=== PATIENT | male | born 1955 | race Caucasian/White ===

== ENCOUNTER 2018-06-12 12:22 | Emergency (ER) | payer BC ==
[~2018-06-12] VITALS: Ht 188 cm; Wt 74.0 kg
[2018-06-12] MEDS ORDERED: diltiazem 5mg/ml 5ml inj. IV ONE ×2 (12:40→13:40)
[2018-06-12 12:47] LABS: BASOPHILS # (AUTO) 0.1 X10'3 (0-0.2); BASOPHILS % (AUTO) 1.5 % (0-1); EOSINOPHILS # (AUTO) 0.1 X10'3 (0-0.9); EOSINOPHILS % (AUTO) 0.6 % (0-6); HEMATOCRIT 46.4 % (42.0-52.0); HEMOGLOBIN 15.6 g/dl (14.0-17.9); LYMPHOCYTES # (AUTO) 1.8 X10'3 (1.1-4.8); LYMPHOCYTES % (AUTO) 19.8 % (21-51); MEAN CORPUSCULAR HEMOGLOBIN 35.2 PG (27.0-31.0); MEAN CORPUSCULAR HGB CONC 33.7 % (33.0-36.5); MEAN CORPUSCULAR VOLUME 104.6 FL (78-98); MEAN PLATELET VOLUME 9.5 FL (7.4-10.4); MONOCYTES # (AUTO) 0.8 X10'3 (0-0.9); NEUTROPHILS # (AUTO) 6.4 X10'3 (1.8-7.7); NEUTROPHILS % (AUTO) 69.1 % (42-75); PLATELET COUNT 174 X10'3 (140-440); RED BLOOD COUNT 4.44 X10'6 (4.70-6.10); RED CELL DISTRIBUTION WIDTH 13.6 % (11.5-14.5); WHITE BLOOD COUNT 9.3 X10'3 (4.5-11.0)
[2018-06-12 13:09] LABS: ALANINE AMINOTRANSFERASE 169 U/L (12-78); ALBUMIN 3.9 G/DL (3.4-5.0); ALBUMIN/GLOBULIN RATIO 1.2 (1.1-1.5); ALKALINE PHOSPHATASE 78 IU/L (46-116); ANION GAP 13 (8-16); ASPARTATE AMINO TRANSFERASE 140 U/L (10-37); BILIRUBIN,TOTAL 1.6 MG/DL (0.1-1.0); BLOOD UREA NITROGEN 27 MG/DL (7-18); BUN/CREATININE RATIO 17.8 (5.4-32.0); CALCIUM 9.1 MG/DL (8.5-10.1); CHLORIDE 102 MMOL/L (99-107); CREATININE 1.52 MG/DL (0.60-1.10); GLUCOSE 136 MG/DL (70-104); POTASSIUM 4.4 MMOL/L (3.5-5.1); SODIUM 139 MMOL/L (135-145); TOTAL CARBON DIOXIDE 24.1 MMOL/L (24-32); TOTAL PROTEIN 7.1 G/DL (6.4-8.2); eGFR 47 ML/MIN
[2018-06-12 13:10] LABS: INR 1.3 INR; PARTIAL THROMBOPLASTIN TIME 25 SECONDS (22-32); PROTHROMBIN TIME 13.3 SECONDS (9.0-12.0)
[2018-06-12] MEDS ORDERED: enoxaparin 100mg/ml syringe SUBCUT ONE (13:35)
[2018-06-12 14:11] LABS: PHOSPHORUS 4.2 MG/DL (2.3-4.5)
[2018-06-12] MEDS ORDERED: METO25TA6 PO (14:22)
[2018-06-12] MEDS ORDERED: AZIT250T83 PO (14:27)
[2018-06-12] MEDS ORDERED: diltiazem 30mg tablet PO ONE (14:45)
[2018-06-12 15:20] VITALS: BP 147/81
[2018-06-13] MEDS ORDERED: APIX5TAB3 PO (01:38)
[2018-06-13] MEDS ORDERED: iohexol 350MG/ML 100ml bottle IV ONE (02:32)
[2018-06-13] MEDS ORDERED: ATOR20TA66 PO (04:48)
[2018-06-16] MEDS ORDERED: LISI2.5T2 PO (12:58)
[2018-06-16] MEDS ORDERED: FURO-150 PO ×2 (12:58→12:59)
[2018-06-16] MEDS ORDERED: APIX5TAB3 PO (12:58)
[2018-06-16] MEDS ORDERED: CARV3.12 PO ×2 (12:58→12:59)
== END 2018-06-12 15:23 | disposition home or self-care (01) ==
LOC: ER 12:23
DX: I48.91 Unspecified atrial fibrillation (principal); R07.9 Chest pain, unspecified; I10 Essential (primary) hypertension
CPT/HCPCS: 36415; 71045; 80053; 83735; 84100; 84484; 85025; 85610; 85730; 93005; 96372; 96374; 96376; 99284; J1650; J3490; Q9967

== ENCOUNTER 2022-07-29 11:53 | Emergency (ER) | payer MEDICARE, OTHER ==
[~2022-07-29] VITALS: Ht 193 cm; Wt 93.0 kg
[~2022-07-29 11:53] MED LIST: APIX5TAB3 PO; ATOR20TA66 PO; CARV3.12 PO; FURO-150 PO; LISI2.5T14 PO
[2022-07-29 12:59] LABS: BASOPHILS % (AUTO) 0.5 % (0-1); EOSINOPHILS # (AUTO) 0.1 X10'3 (0-0.9); EOSINOPHILS % (AUTO) 0.9 % (0-6); HEMATOCRIT 44.2 % (42.0-52.0); HEMOGLOBIN 14.9 g/dl (14.0-17.9); LYMPHOCYTES % (AUTO) 23.3 % (21-51); MEAN CORPUSCULAR HEMOGLOBIN 33.2 PG (27.0-31.0); MEAN CORPUSCULAR HGB CONC 33.8 g/dL (33.0-36.5); MEAN CORPUSCULAR VOLUME 98.2 FL (78-98); MEAN PLATELET VOLUME 8.6 FL (7.4-10.4); MONOCYTES # (AUTO) 0.6 X10'3 (0-0.9); MONOCYTES % (AUTO) 7.5 % (2-12); NEUTROPHILS # (AUTO) 5.8 X10'3 (1.8-7.7); NEUTROPHILS % (AUTO) 67.8 % (42-75); PLATELET COUNT 199 X10'3 (140-440); RED CELL DISTRIBUTION WIDTH 12.7 % (11.5-14.5); WHITE BLOOD COUNT 8.6 X10'3 (4.5-11.0)
[2022-07-29 13:00] LABS: APTT 30 SECONDS (22-32)
[2022-07-29 13:03] LABS: ALANINE AMINOTRANSFERASE 28 U/L (12-78); ALBUMIN 4.1 G/DL (3.4-5.0); ALBUMIN/GLOBULIN RATIO 1.2 (1.1-1.5); ALKALINE PHOSPHATASE 77 IU/L (46-116); ANION GAP 8 (8-16); ASPARTATE AMINO TRANSFERASE 32 U/L (10-37); BILIRUBIN,TOTAL 1.7 MG/DL (0.1-1.0); BLOOD UREA NITROGEN 17 MG/DL (7-18); BUN/CREATININE RATIO 16.3 (5.4-32.0); CALCIUM 9.4 MG/DL (8.5-10.1); CHLORIDE 103 MMOL/L (99-107); CREATININE 1.04 MG/DL (0.60-1.10); GLUCOSE 119 MG/DL (70-104); POTASSIUM 4.4 MMOL/L (3.5-5.1); SODIUM 137 MMOL/L (135-145); TOTAL CARBON DIOXIDE 25.9 MMOL/L (24-32); TOTAL PROTEIN 7.4 G/DL (6.4-8.2); eGFR 71 ML/MIN
--- NOTE | 2022-07-29 13:05 | NUR ---
neuro assessment completed for head injury, not suspition of stroke.
[2022-07-29] MEDS ORDERED: KCentra-PCC 500 unit/20mL vial 100 ML IV ONE (14:20)
--- NOTE | 2022-07-29 14:26 | NUR ---
gave phone report to Chato RN at [facility] ED for nurse to nurse report, pt being transfered for skull fx
[2022-07-29] MEDS ORDERED: KCENTRA PCC 500 UNIT/20 ML IV ONE (14:45)
[2022-07-29] MEDS ORDERED: acetaminophen 325mg tablet PO ONE (15:25)
[2022-07-29 15:50] VITALS: BP 124/83
== END 2022-07-29 17:42 ==
LOC: ER 11:54
DX: S02.91XA Unspecified fracture of skull, initial encounter for closed fracture (principal); I62.9 Nontraumatic intracranial hemorrhage, unspecified; I48.91 Unspecified atrial fibrillation; E78.00 Pure hypercholesterolemia, unspecified; I10 Essential (primary) hypertension; F12.90 Cannabis use, unspecified, uncomplicated; Z72.89 Other problems related to lifestyle; Z88.1 Allergy status to other antibiotic agents; Z79.899 Other long term (current) drug therapy; X58.XXXA Exposure to other specified factors, initial encounter; Y93.89 Activity, other specified; Y92.89 Other specified places as the place of occurrence of the external cause; Y99.8 Other external cause status
CPT/HCPCS: 36415; 70450; 72125; 80053; 85025; 85610; 85730; 86885; 86900; 86901; 93005; 96365; 96366; 99285; J7168

== ENCOUNTER 2025-02-06 15:48 | Emergency (ER) | payer MEDICARE, OTHER ==
[~2025-02-06] VITALS: Ht 190.5 cm; Wt 90.1 kg
[2025-02-06 16:11] VITALS: TEMP 98.9
[2025-02-06 16:23] LABS: MEAN PLATELET VOLUME 8.1 FL (7.4-10.4); RED CELL DISTRIBUTION WIDTH 13.0 % (11.5-14.5)
--- NOTE | 2025-02-06 16:36 | RADIOLOGY REPORT ---
CHEST RADIOGRAPH Indication: CP Technique: Single frontal view of the chest was obtained COMPARISON: None FINDINGS: Lines and Tubes: None Lungs: Clear Pleura: No effusion. No pneumothorax. Cardiomediastinal contours: Unremarkable Bones: Unremarkable IMPRESSION: 1. No acute disease.
[2025-02-06 16:40] LABS: CREATININE 1.20 MG/DL (0.60-1.10); PRO BRAIN NATRIURETIC PEPTIDE 2847 PG/ML (0-125); TOTAL CARBON DIOXIDE 24.4 MMOL/L (24-32); eCRCL 68 ML/MIN; eGFR 60 ML/MIN
--- NOTE | 2025-02-06 16:55 | ELECTROCARDIOGRAPH REPORT ---
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
[2025-02-06] MEDS: diltiazem 5mg/ml 5ml inj. IV ONE ×2 (18:52→19:40)
[2025-02-06] MEDS: normal saline 1000ml 1,000 ML IV ONE ×2 (18:53→21:36)
--- NOTE | 2025-02-06 19:26 | Physician Documentation ---
History of Present Illness ~ Chief Complaint: Irregular Heartbeat Stated Complaint: CP/SOB Time Seen by MD: 18:46 Mode of Arrival: POV, Ambulatory HPI Patient presents to the emergency room for evaluation of palpitations for which she states feels like atrial fibrillation. Patient does take Eliquis in his emt intermediate is Dr. Cui. He states he saw both his emt intermediate and primary care in the past two months and at that point was told that everything looks good. He had an ablation two years ago and since that time has been in sinus rhythm. Last night he had just finished going out to dinner and having one drink of alcohol came home and felt himself click into atrial fibrillation. No syncope although he states that today while bending over and then standing up he did get lightheaded. Denies chest pain. Medication Reconciliation Allergies: Coded Allergies: cephalexin (Verified Allergy, Unknown, 02/06/25) Scheduled Apixaban (Eliquis), 5 MG PO BID Atorvastatin Calcium (Atorvastatin Calcium), 1 TAB PO DAILY, (Reported) Carvedilol (Coreg), 1 TAB PO Q12H Furosemide (Lasix), 2 TAB PO Q12H Lisinopril (Lisinopril), 2.5 MG PO HS Past Medical History Past Medical History: High Cholesterol, Hypertension Past Surgical History: noncontributory Alcohol Use: Occasionally Drug Use: marijuana Review of Systems ROS All review of systems negative except as per HPI Physical Exam Vital Signs: Temperature: 98.9, Source: Temporal, Heart Rate: 102, Respiratory Rate: 15, BP: 114/75, Pulse Oximetry: 98, Weight: 90.100 Oxygen Flow Rate: 0 Physical Exam General: Patient is awake, alert, oriented x4 in no acute distress and well appearing.~ Head: Normocephalic and atraumatic. Eyes: Conjunctival normal. EOMI. PERRL. ENT: Mucous membranes moist. Neck: Supple, trachea is midline. Chest: Clear to auscultation bilaterally without rales, rhonchi, or wheezes. There is no accessory muscle use or retractions. Cardiac: Tachycardic and irregular without murmurs, gallops, or rubs. Abd: Soft, nondistended, nontender, with normoactive bowel sounds. No guarding, rebound, or rigidity. Extremities: Normal strength. Normal range of motion. No deformities or edema. Procedures Procedures Cardioversion: Status post informed written consent with Respiratory therapy at bedside and post time-out 150 joules of synchronized electricity administered with return of sinus rhythm. 60 mg of propofol was utilized for procedural sedation. Postprocedure EKG confirms returned to sinus rhythm. Patient monitored by myself until maintaining airway. Patient tolerated procedure well without complication. Total time of procedure 5 minutes Progress Results/Orders Results/Orders Completed Orders - BHAVIN STARR MD Normal Saline 1000ml (0.9% Sodium Chlori (02/06/25 18:50) Diltiazem Iv (Cardizem Iv 5mg/Ml Inj.) (02/06/25 18:50) Diltiazem Iv (Cardizem Iv 5mg/Ml Inj.) (02/06/25 19:25) Metoprolol Tartrate Inj (Lopressor Iv) (02/06/25 20:10) Propofol Inj (Diprivan Inj) (02/06/25 21:15) Normal Saline 1000ml (0.9% Sodium Chlori (02/06/25 21:25) Electrocardiogram (02/06/25 22:07) Medications Received in ER Medications (Trade) Dose Ordered Sig/Juancarlos Route PRN Reason Start Time Stop Time Status Last Admin Dose Admin Sodium Chloride 1,000 ml @ 1,000 mls/hr ONCE ONCE IV 02/06/25 18:50 02/06/25 19:49 DC 02/06/25 18:53 1,000 MLS/HR (Cardizem IV 5mg/ ml inj.) 10 mg ONCE ONCE IV 02/06/25 18:50 02/06/25 18:51 DC 02/06/25 18:52 10 MG (Cardizem IV 5mg/ ml inj.) 5 mg ONCE ONCE IV 02/06/25 19:25 02/06/25 19:26 DC 02/06/25 19:40 5 MG (Lopressor IV) 5 mg Q15M IV 02/06/25 20:10 02/06/25 20:41 DC 02/06/25 20:47 5 MG Sodium Chloride 1,000 ml @ 1,000 mls/hr ONCE ONCE IV 02/06/25 21:25 02/06/25 22:24 DC 02/06/25 21:36 1,000 MLS/HR Vital Signs 02/06/25 02/06/25 02/06/25 02/06/25 16:11 18:46 18:52 18:57 Temp 98.9 Pulse 63 158 149 102 Resp 16 20 16 B/P (MAP) 103/77 133/85 (101) 133/85 114/75 (88) Pulse Ox 98 98 98 O2 Flow Rate 0 0 0 02/06/25 02/06/25 02/06/25 02/06/25 18:58 19:40 20:47 20:50 Pulse 97 130 105 Resp 15 16 B/P (MAP) 131/99 (110) Pulse Ox 98 O2 Flow Rate 0 02/06/25 02/06/25 02/06/25 02/06/25 21:08 21:49 22:01 22:06 Pulse 114 146 128 128 Resp 18 12 12 B/P (MAP) 95/74 (81) 112/89 (97) 117/92 93/73 Pulse Ox 98 99 100 99 O2 Delivery Nasal Cannula Nasal Cannula O2 Flow Rate 0 0 2.0 2.0 02/06/25 02/06/25 22:08 22:14 Pulse 62 62 Resp 12 20 B/P (MAP) 98/73 (81) 105/74 (84) Pulse Ox 98 96 O2 Delivery Nasal Cannula O2 Flow Rate 0 0 Laboratory Tests Test 02/06/25 16:02 02/06/25 18:20 02/06/25 19:27 White Blood Count 8.2 Red Blood Count 4.29 L Hemoglobin 14.5 Hematocrit 42.7 Mean Corpuscular Volume 99.4 H Mean Corpuscular Hemoglobin 33.8 H Mean Corpuscular Hemoglobin Concent 34.0 Red Cell Distribution Width 13.0 Platelet Count 222 Mean Platelet Volume 8.1 Neutrophils (%) (Auto) 65.6 Lymphocytes (%) (Auto) 23.1 Monocytes (%) (Auto) 8.4 Eosinophils (%) (Auto) 2.0 Basophils (%) (Auto) 0.9 Neutrophils # (Auto) 5.4 Lymphocytes # (Auto) 1.9 Monocytes # (Auto) 0.7 Eosinophils # (Auto) 0.2 Basophils # (Auto) 0.1 CBC Comment Sodium Level 140 Potassium Level 4.0 Chloride Level 107 Carbon Dioxide Level 24.4 Anion Gap 9 Blood Urea Nitrogen 21 H Creatinine 1.20 H Estimated GFR/1.73 m2 60 BUN/Creatinine Ratio 17.5 Glucose Level 144 H Calcium Level 9.1 Troponin I High Sensitivity 15 24 28 Pro-B-Type Natriuretic Peptide 2847 H Albumin 4.0 Chemistry Comments Troponin I High Sens Percent Delta 60 16 Troponin I Hi Sens Absolute Change 9 4 EKG/XRAY/CT/US/VASC/MRI EKG : Additional Comment EKG interpreted by myself shows time of 1600, rate 122, normal axis, no ST changes Repeat EKG interpreted by myself shows time of 2210, rate 61, sinus rhythm, nor mal axis, no ST changes Chest X-Ray : Additional Comments Exam: CHEST,SINGLE VIEW CHEST RADIOGRAPH Indication: CP Technique: Single frontal view of the chest was obtained COMPARISON: None FINDINGS: Lines and Tubes: None Lungs: Clear Pleura: No effusion. No pneumothorax. Cardiomediastinal contours: Unremarkable Bones: Unremarkable IMPRESSION: 1. No acute disease. Medical Decision Making Findings Patient presents to the emergency room in atrial fibrillation as per HPI. Differentials include but are not limited to atrial fibrillation, supraventricu lar tachycardia, ventricular tachycardia, esophageal spasm, ACS therefore emergent labs ordered which were reassuring. Patient responded very well to Cardizem Departure Disposition: HOME / SELF CARE / HOMELESS Impression: Primary Impression: Atrial fibrillation with RVR Condition: Improved Discharge Instructions: Atrial Fibrillation Referrals: NO PRIMARY CARE PROVIDER (PCP) Education Educated: Patient Educated regarding: diagnosis, treatment, need for follow up Critical Care Note Total Time (mins): 30 Critical Care Note The very real possibility of a deterioration of this patient's condition required the highest level of my preparedness for sudden, emergent intervention. I provided critical care services, which included medication orders, frequent reevaluations of the patient's condition and response to treatment, ordering and reviewing test results, and discussing the case with various consultants. Excludes time spent performing separately billable procedures. The critical care time associated with the care of the patient was 30 minutes not counting procedures Signature Scribe Signature: No scribe Attestation: The note accurately reflects work and decisions made by me.Bhavin Starr MD 02/06/25 22:29 BHAVIN STARR MD Feb 06, 2025 19:26
[2025-02-06] MEDS: metoprolol tartrate 1mg/ml inj IV SCH (20:25)
[2025-02-06] MEDS: propofol 10mg/ml 20ml vial IV ONE (22:04)
--- NOTE | 2025-02-06 22:13 | ELECTROCARDIOGRAPH REPORT ---
[facility] Test Date: 2025-02-06 Test Time: 22:10:36 Pat Name: YUNG MADSEN Department: [facility]- Patient ID: 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 Reading MD: Measurements Intervals [place] Rate: 61 P: 23 CO: 165 QRS: 29 QRSD: 98 T: 33 QT: 407 QTc: 410 Interpretive Statements Sinus rhythm Atrial premature complex Abnormal R-wave progression, early transition Please click the below link to view image of tracing.
[2025-02-06 22:30] VITALS: BP 112/83; PULSE 62; RESP 16; O2SAT 98
== END 2025-02-06 22:41 | disposition home or self-care (01) ==
LOC: ER 15:49
DX: I48.91 Unspecified atrial fibrillation (principal); R00.2 Palpitations; I10 Essential (primary) hypertension; E78.00 Pure hypercholesterolemia, unspecified; R06.02 Shortness of breath; Z79.01 Long term (current) use of anticoagulants; Z88.1 Allergy status to other antibiotic agents
CPT/HCPCS: 36415; 71045; 80048; 83880; 84484; 85025; 92960; 93005; 96361; 96374; 96376; 99291; A4620; J3490; J7030; 99152